=== PATIENT | male | born 1980 | race Caucasian/White ===

== ENCOUNTER 2021-03-05 19:18 | Emergency (ER) | payer SELFPAY ==
[2021-03-05 19:19] VITALS: BP 165/103; PULSE 110; RESP 18; TEMP 36.7; O2SAT 99; BMI 29.8
[2021-03-05 19:34] LABS: Basophils # 0.1 10^3/uL (0.0-0.1); Basophils % 0.5 %; Eosinophils % 0.3 %; Hematocrit 47.5 % (42.0-52.0); Hemoglobin 16.5 g/dL (11.7-16.6); Lymphocytes # 1.5 10^3/uL (0.8-4.8); Lymphocytes % 15.2 %; Mean Corpuscular HGB Conc 34.7 g/dL (30.0-36.0); Mean Corpuscular Hemoglobin 30.9 pg (28.0-34.0); Mean Platelet Volume 9.4 fL (7.4-10.4); Monocytes # 0.7 10^3/uL (0.2-0.9); Monocytes % 6.5 %; Neutrophils # 7.74 10^3/uL (1.8-7.7); Neutrophils % 77.3 %; Nucleated Red Blood Cells % 0 %; Platelet Count 265 10^3/cmm (130-400); Red Blood Count 5.34 10^6/uL (4.1-5.3); Red Cell Distribution Width 12.1 % (12.1-15.1)
[2021-03-05 19:52] LABS: Alanine Aminotransferase 33 U/L (0-41); Albumin Level 4.7 g/dL (3.5-5.2); Alkaline Phosphatase 80 IU/L (40-130); Anion Gap 16.9 (5-19); Aspartate Amino Transferase 24 U/L (0-40); Blood Urea Nitrogen 14 mg/dL (6-20); Calcium 8.8 mg/dL (8.5-10.5); Carbon Dioxide 27 mmol/L (22-29); Chloride 96 mmol/L (98-107); Globulin 3.2 g/dL (1.3-4.6); Glomerular Filtration Rate 150.8 mL/min (90-130); Glucose 277 mg/dL (65-115); Osmolality Calculated 292 mOsm/kg (285-295); Potassium 3.9 mmol/L (3.5-5.1); Sodium 136 mmol/L (136-145); Total Bilirubin 0.9 mg/dL (0.15-1.2); Total Protein 7.9 g/dL (6.6-8.7)
[2021-03-05 19:55] LABS: Acetaminophen < 5.0 ug/mL (10-30); Alcohol Level < 10 mg/dL (0-10); Creatinine Clr Calc Pharmacy 169.6364; Salicylate < 0.3 mg/dL (3-10)
[2021-03-05 20:01] LABS: Ketone (Acetest) Serum Positive (Negative)
[2021-03-05 20:35] LABS: Add Urine Microscopic? YES; Amphetamines Screen Urine Positive (Negative); Barbiturates Screen Urine Negative (Negative); Benzodiazepines Screen Urine Negative (Negative); Bilirubin Urine Neg (Negative); Blood Urine Neg (Negative); Cocaine Screen Urine Negative (Negative); Glucose Urine UA 4+ (Normal); Ketones Urine 3+ (Negative); Leukocyte Esterase Urine Negative (Negative); Nitrate Urine Negative (Negative); Opiate Screen Urine Negative (Negative); PCP Screen Urine Negative (Negative); Protein Urine 1+ (Negative); THC Screen Urine Negative (Negative); Urine Appearance Clear (CLEAR); Urine Color Yellow (Yellow); Urobilinogen Urine 1 mg/dL (Negative); pH Urine 5 (5-7)
[2021-03-05 20:36] LABS: Squamous Epithelial Cell Urine 0-4 /hpf (0-5)
[2021-03-05 20:37] LABS: Add Urine Culture? No; Mucus Urine 1+ /hpf
--- NOTE | 2021-03-05 20:48 | W.ED.PSYCH ---
HPI - Psych General: Chief Complaint: Psychiatric Symptoms Stated Complaint: seeing people Time Seen by Provider: 03/05/21 19:33 History of Present Illness: HPI Narrative: Patient was brought by EMS because he had called the police because he saw people running through his backyard and he was chasing them and then when EMS was there and the police he also talked about people being in a back room in his house they did not find anything of the sort he was hallucinating therefore they brought him into the emergency department. Patient here is alert oriented he is cooperative he admits to seeing these people and that he does realize that he was hallucinating he denies doing any drugs today says his last drug use was in September when he lost everything he is and estranged from his police. Patient has denied suicidal and homicidal ideation to myself and to other staff members nor any other family are here to write any affidavits he is has no complaints he is diabetic has not eaten today or taken his insulin he says he has hallucinated in the past with drug use he denies any diagnoses of bipolar or depression or Patient continually has denied suicidal or homicidal ideation I asked the sitter that was on the room same with the charge nurse he heard him deny it Physical Exam Narrative: EXAM NARRATIVE: general: a/o/3, no distress Head: atraumatic HEENT: normal eyes, normal conjunctiva, normal hearing, normal external nose, normal mouth, mucous membranes moist Neck: FROM, trachea midline Chest: normal expansion, no gross deformities Resp: normal speech, no retractions, no accessory muscle use, CTA bilaterally Cardio: regular rate and rhythm and no murmur, no peripheral edema, normal peripheral pulses GI: soft, flat non tender, no guarding normal BS : deferred Musculoskeletal: FROM, no pain or gross deformities Neuro: a/o appropriate for age, no gross motor or sensory deficits, CN II-XII grossly intact, normal coordination, normal speech Skin: no rashes Psych: cooperative, normal mood and effect Course Vital Signs: Vital signs: Vital Signs Temperature 98.0 F 03/05/21 19:19 Pulse Rate 110 H 03/05/21 19:19 Respiratory Rate 18 03/05/21 19:19 Blood Pressure 165/103 03/05/21 19:19 Pulse Oximetry 99 03/05/21 19:19 MDM - Psych MDM Narrative: Medical decision making narrative: Patient is cooperative and pleasant he is ANO x4 he does not appear to be tweaking although he is positive for amphetamines on his drug screen I do not have any affidavits on him he is denied suicidal or homicidal ideation. Patient lives at home alone I spoke with his mother who lives in [place] she is on her way to come see him she says she is communicated with him via texting on the phone over the past several days and he has been appropriate she has only had [id number] contact with him about 3-4 times since [address] Spoke to Dr. Perry from psychiatry and we will wait to try to talk to the mother. Spoke with the mother who is now here in the emergency department she has seen her son [id number] she feels he is appropriate I did have permission from him to share with her his drug screen he continues to deny amphetamine use says he has not used since September 14 however also denies [id number] medication such as Zantac that can cause false positives he does not appear to be tweaking the mother still feels safe taking him possibly patient did enough drugs to cause him to hallucinate but has improved. I spoke with Dr. Perry from psychiatry again after speaking with the mother patient again continuously has said he is not suicidal he denies any further hallucinations he just wants to get his injured dog to the vet the mother is willing to help him do that and she told me she will take responsibility for him and he can go stay at her house the next couple of days in [place] His blood sugar is up he has not taken his insulin today and has not eaten he does have some serum ketones however he is not acidotic on his labs Medical Records: Attestation: I reviewed the patient's medical records. Lab Data: Attestation: I reviewed the patient's lab results. Labs: Lab Results 03/05/21 03/05/21 03/05/21 Range/Units 19:28 19:28 19:28 WBC 10.0 (4.0-10.0) 10^3/ uL RBC 5.34 H (4.1-5.3) 10^6/u L Hgb 16.5 (11.7-16.6) g/dL Hct 47.5 (42.0-52.0) % MCV 89.0 (80-94) fL MCH 30.9 (28.0-34.0) pg MCHC 34.7 (30.0-36.0) g/dL RDW 12.1 (12.1-15.1) % Plt Count 265 (130-400) 10^3/c mm MPV 9.4 (7.4-10.4) fL Neut % (Auto) 77.3 % Lymph % (Auto) 15.2 % [place] % (Auto) 6.5 % Eos % (Auto) 0.3 % Baso % (Auto) 0.5 % Neut # (Auto) 7.74 H (1.8-7.7) 10^3/u L Lymph # (Auto) 1.5 (0.8-4.8) 10^3/u L [place] # (Auto) 0.7 (0.2-0.9) 10^3/u L Eos # (Auto) 0.0 (0.0-0.8) 10^3/u L Baso # (Auto) 0.1 (0.0-0.1) 10^3/u L Nucleated RBC % (a uto) 0 % Nucleated RBCs # 0.0 /100WBC Sodium 136 (136-145) mmol/L Potassium 3.9 (3.5-5.1) mmol/L Chloride 96 L (98-107) mmol/L Carbon Dioxide 27 (22-29) mmol/L Anion Gap 16.9 (5-19) BUN 14 (6-20) mg/dL Creatinine 0.6 L (0.7-1.2) mg/dL GFR Calculation 150.8 H (90-130) mL/min Glucose 277 H (65-115) mg/dL Calculated Osmolal ity 292 (285-295) mOsm/k g Calcium 8.8 (8.5-10.5) mg/dL Total Bilirubin 0.9 (0.15-1.2) mg/dL AST 24 (0-40) U/L ALT 33 (0-41) U/L Alkaline Phosphata se 80 (40-130) IU/L Total Protein 7.9 (6.6-8.7) g/dL Albumin 4.7 (3.5-5.2) g/dL Globulin 3.2 (1.3-4.6) g/dL Urine Color (Yellow) Urine Appearance (CLEAR) Urine pH (5-7) Ur Specific Gravit y (1.005-1.030) Urine Protein (Negative) Urine Glucose (UA) (Normal) Urine Ketones (Negative) Urine Blood (Negative) Urine Nitrate (Negative) Urine Bilirubin (Negative) Urine Urobilinogen (Negative) mg/dL Ur Leukocyte Tamia ase (Negative) Urine RBC (0-2) /hpf Urine WBC (0-5) /hpf Ur Squamous Epith Cells (0-5) /hpf Amorphous Sediment Urine Bacteria (NONE) /hpf Urine Mucus /hpf Salicylates < 0.3 L (3-10) mg/dL Urine Opiates Scre en (Negative) ng/mL Acetaminophen < 5.0 L (10-30) ug/mL Ur Barbiturates Sc reen (Negative) ng/mL Ur Phencyclidine S crn (Negative) ng/mL Ur Amphetamines Sc reen (Negative) ng/mL U Benzodiazepines Scrn (Negative) ng/mL Urine Cocaine Scre en (Negative) ng/mL U Marijuana (THC) Screen (Negative) ng/mL Ethyl Alcohol < 10 (0-10) mg/dL Serum Ketones Positive H (Negative) 03/05/21 03/05/21 Range/Units 20:14 20:14 WBC (4.0-10.0) 10^3/ uL RBC (4.1-5.3) 10^6/u L Hgb (11.7-16.6) g/dL Hct (42.0-52.0) % MCV (80-94) fL MCH (28.0-34.0) pg MCHC (30.0-36.0) g/dL RDW (12.1-15.1) % Plt Count (130-400) 10^3/c mm MPV (7.4-10.4) fL Neut % (Auto) % Lymph % (Auto) % [place] % (Auto) % Eos % (Auto) % Baso % (Auto) % Neut # (Auto) (1.8-7.7) 10^3/u L Lymph # (Auto) (0.8-4.8) 10^3/u L [place] # (Auto) (0.2-0.9) 10^3/u L Eos # (Auto) (0.0-0.8) 10^3/u L Baso # (Auto) (0.0-0.1) 10^3/u L Nucleated RBC % (a uto) % Nucleated RBCs # /100WBC Sodium (136-145) mmol/L Potassium (3.5-5.1) mmol/L Chloride (98-107) mmol/L Carbon Dioxide (22-29) mmol/L Anion Gap (5-19) BUN (6-20) mg/dL Creatinine (0.7-1.2) mg/dL GFR Calculation (90-130) mL/min Glucose (65-115) mg/dL Calculated Osmolal ity (285-295) mOsm/k g Calcium (8.5-10.5) mg/dL Total Bilirubin (0.15-1.2) mg/dL AST (0-40) U/L ALT (0-41) U/L Alkaline Phosphata se (40-130) IU/L Total Protein (6.6-8.7) g/dL Albumin (3.5-5.2) g/dL Globulin (1.3-4.6) g/dL Urine Color Yellow (Yellow) Urine Appearance Clear (CLEAR) Urine pH 5 (5-7) Ur Specific Gravit y 1.020 (1.005-1.030) Urine Protein 1+ H (Negative) Urine Glucose (UA) 4+ H (Normal) Urine Ketones 3+ H (Negative) Urine Blood Neg (Negative) Urine Nitrate Negative (Negative) Urine Bilirubin Neg (Negative) Urine Urobilinogen 1 H (Negative) mg/dL Ur Leukocyte Tamia ase Negative (Negative) Urine RBC None (0-2) /hpf Urine WBC None (0-5) /hpf Ur Squamous Epith Cells 0-4 H (0-5) /hpf Amorphous Sediment Not Reportable Urine Bacteria None (NONE) /hpf Urine Mucus 1+ /hpf Salicylates (3-10) mg/dL Urine Opiates Scre en Negative (Negative) ng/mL Acetaminophen (10-30) ug/mL Ur Barbiturates Sc reen Negative (Negative) ng/mL Ur Phencyclidine S crn Negative (Negative) ng/mL Ur Amphetamines Sc reen Positive H (Negative) ng/mL U Benzodiazepines Scrn Negative (Negative) ng/mL Urine Cocaine Scre en Negative (Negative) ng/mL U Marijuana (THC) Screen Negative (Negative) ng/mL Ethyl Alcohol (0-10) mg/dL Serum Ketones (Negative) Discharge Plan Discharge Patient Disposition: Home Clinical Impression: Hallucinations, Hyperglycemia Condition: Stable Prescriptions: No Action Lantus Solostar U-100 Insulin 100 unit/mL (3 mL) Insulin Pen 20 unit SUBCUT BID RF: 0 Discharge Orders: Discharge ED (Routine); Ordered 03/05/21 Ordered By: Tatiana Bernard Discharge Diet: Usual diet Discharge Activity: Resume usual activity Activity Restrictions/Additional Instructions: You need to take your insulin tonight and you need to eat No illicit drug use You are to stay with your mom lucinda let her keep an eye on you return if you have any further hallucinations or concerns return if you have any thoughts of suicide or homicidal ideations Thank you for choosing [facility] [place] for your healthcare needs today. Please realize this is an emergency room and that we are providing you with a medical screening exam and this may not be complete and all inclusive of all the testing and or work up that you may need to determine your ailment or severity of your illness. It is very important that you follow up as instructed or that you return to the Emergency Department should you have concerns or if your condition changes or worsens in any way. Coding Level of Care Code ED Manager Of Development for Sarai Frias
[2021-03-05 21:15] VITALS: PULSE 99; RESP 20; O2SAT 95
== END 2021-03-05 21:17 | disposition home or self-care (01) ==
PROVIDERS: Emergency Medicine; Emergency Provider Emergency Medicine
DX: R44.1 Visual hallucinations (principal); E11.65 Type 2 diabetes mellitus with hyperglycemia; Z79.4 Long term (current) use of insulin
CPT/HCPCS: 80053; 80306; 80307; 81001; 82009; 85025; 99284

== ENCOUNTER 2021-08-10 14:24 | Emergency (ER) | payer SELFPAY ==
[2021-08-10 14:25] VITALS: BP 156/97; PULSE 119; RESP 17; O2SAT 100; BMI 29.0
[2021-08-10 14:55] VITALS: BP 156/97; PULSE 110; RESP 17; O2SAT 98
--- NOTE | 2021-08-10 14:55 | ED_ITS ---
HPI - General Adult General: Chief complaint: Dizziness Stated complaint: HYPERGLYCEMIA; DIZZINESS Time Seen by Provider: 08/10/21 14:25 History of Present Illness: HPI narrative: 41-year-old male with history of type 2 diabetes on insulin presenting to the em ergency room with poorly controlled glucose. Patient says that for the last few months, he has had glucose running in the range of 700 900. Patient was told to go to the emergency room at the request of his family. Patient denies any nausea/vomiting, history of DKA, abdominal complaints chest pain, shortness of breath, palpitation, or other complaints. Patient says that he has been able to tolerate p.o. without any difficulty. Onset: chronic Duration:ongoing Location:home Severity:moderate Review of Systems Narrative: Constitutional: No fever, no chills. HEENT: No vision changes CV: No chest pain, no palpitations PULM: no cough, no dyspnea. GI: No abdominal pain, no N/V/D. : No dysuria MSKEL: No muscle pain SKIN: No new rashes, no lesions. NEURO: No headache, no focal weakness. HEME: No visible bruises PSYCH: Normal mood Physical Exam Narrative: EXAM NARRATIVE: Head: Atraumatic Eyes: PERRL, conjunctiva without injection ENT: Dry membrane moist NECK: Supple, ROM intact LUNGS: LCTAB, no crackles/rhonchi CV: Sinus tacycardia ABDOMEN: Soft, nontender in all quadrants EXTREMITY: Normal ROM SKIN: No rash or erythema NEURO: Awake and alert, no focal motor deficits PSYCH: Normal mood and affect Course Vital Signs: Vital signs: Vital Signs Pulse Rate 92 08/10/21 17:07 Respiratory Rate 17 08/10/21 17:07 Blood Pressure 133/86 08/10/21 17:07 Pulse Oximetry 99 08/10/21 17:07 MDM - General Adult MDM Narrative: Medical decision making narrative: 41-year-old male with history of type 2 diabetes presenting to the emergency room for concerns of hyperglycemia. On exam, patient noted to be tachycardic and dry. Rest of exam within normal limit. Laboratory evaluation, patient is noted to have white count of 17.3 at this present time, he is afebrile. He is hemoconcentrated 19.2. Creatinine within normal limit. Sodium 127. Glucose of 456. Patient does not exhibit any signs of anion gap metabolic acidosis. No suspicion the patient is in DKA at the present time. Patient received 2 L of fluid, 5 units subcutaneous lispro with improvement of glucose to less than 300. At the present time, I discussed with patient that it is imperative for him to follow-up with our care patient provided further evaluation. Unclear what the source of leukocytosis at this time but at the present time do not suspect infection given no focal symptoms. I have given patient follow up with our lead case manager to be seen by our PCP for evaluation of uncontrolled diabetes. Patient aware of a call from our lead case manager to schedule for appointment(s) and verbalizes understanding of the importance of following up. Patient does not tolerate metformin in the past and does not want it today. Disposition: Discharge. Patient counseled regarding diagnostic impression, treatment plan. Patient given ED strict return precautions to return for continuation, worsening, or development of new symptoms. Instructed to f/u w/ PCP regarding symptoms today. Patient verbalized understanding. Lab Data: Labs: Lab Results 08/10/21 08/10/21 08/10/21 13:20 14:41 14:53 WBC 17.3 10^3/uL H 10 ^3/uL (4.0-10.0) RBC 5.97 10^6/uL H 10 ^6/uL (4.1-5.3) Hgb 19.2 g/dL H g/dL (11.7-16.6) Hct 53.8 % H % (42.0-52.0) MCV 90.1 fl fl (80-94) MCH 32.2 pg pg (28.0-34.0) MCHC 35.7 g/dL g/dL (30.0-36.0) RDW 12.1 % % (12.1-15.1) Plt Count 256 10^3/cmm 10^3 /cmm (130-400) MPV 9.6 fL fL (7.4-10.4) Neut % (Auto) 84.0 % % Lymph % (Auto) 9.3 % % [place] % (Auto) 5.4 % % Eos % (Auto) 0.5 % % Baso % (Auto) 0.3 % % Neut # (Auto) 14.50 10^3/uL H 1 0^3/uL (1.8-7.7) Lymph # (Auto) 1.6 10^3/uL 10^3/ uL (0.8-4.8) [place] # (Auto) 0.9 10^3/uL 10^3/ uL (0.2-0.9) Eos # (Auto) 0.1 10^3/uL 10^3/ uL (0.0-0.8) Baso # (Auto) 0.1 10^3/uL 10^3/ uL (0.0-0.1) Nucleated RBC % (a uto) 0 % % Nucleated RBCs # 0.0 /100WBC /100W BC Specimen Type Venous Karthik Test Pos VBG pH 7.42 (7.32-7.42) VBG pCO2 39.3 mmHg L mmHg (41-51) VBG pO2 79.2 mmHg H mmHg (25-40) VBG HCO3 25.3 mmol/L mmol/ L (24-28) VBG Base Excess 0.8 mmol/L mmol/L (-3.0-3.0) VBG Hematocrit 56.4 % H % (42-52) O2 Delivery Device Ra Practice Architect ID [place] Sodium Potassium Chloride Carbon Dioxide Anion Gap BUN Creatinine GFR Calculation Glucose POC Glucose Calculated Osmolal ity Calcium Total Bilirubin AST ALT Alkaline Phosphata se Total Protein Albumin Globulin Lipase Urine Color Yellow (Yellow) Urine Appearance Clear (CLEAR) Urine pH 6.5 (5-7) Ur Specific Gravit y 1.005 (1.005-1.030) Urine Protein Neg (Negative) Urine Glucose (UA) 4+ H (Normal) Urine Ketones Negative (Negative) Urine Blood Neg (Negative) Urine Nitrate Negative (Negative) Urine Bilirubin Neg (Negative) Urine Urobilinogen Norm mg/dL mg/dL (Negative) Ur Leukocyte Tamia ase Negative (Negative) Serum Ketones 08/10/21 08/10/21 08/10/21 14:53 14:53 17:12 WBC RBC Hgb Hct MCV MCH MCHC RDW Plt Count MPV Neut % (Auto) Lymph % (Auto) [place] % (Auto) Eos % (Auto) Baso % (Auto) Neut # (Auto) Lymph # (Auto) [place] # (Auto) Eos # (Auto) Baso # (Auto) Nucleated RBC % (a uto) Nucleated RBCs # Specimen Type Karthik Test VBG pH VBG pCO2 VBG pO2 VBG HCO3 VBG Base Excess VBG Hematocrit O2 Delivery Device Practice Architect ID Sodium 127 mmol/L L mmol /L (136-145) Potassium 4.4 mmol/L mmol/L (3.5-5.1) Chloride 89 mmol/L L mmol/ L (98-107) Carbon Dioxide 23 mmol/L mmol/L (22-29) Anion Gap 19.4 H (5-19) BUN 7 mg/dL mg/dL (6-20) Creatinine 0.5 mg/dL L mg/dL (0.7-1.2) GFR Calculation 185.1 mL/min H mL /min (90-130) Glucose 456 mg/dL H mg/dL (65-115) POC Glucose 264 mg/dL H mg/dL (70-110) Calculated Osmolal ity 282 mOsm/kg L mOs m/kg (285-295) Calcium 9.2 mg/dL mg/dL (8.5-10.5) Total Bilirubin 0.4 mg/dL mg/dL (0.15-1.2) AST 12 U/L U/L (0-40) ALT 19 U/L U/L (0-41) Alkaline Phosphata se 96 IU/L IU/L (40-130) Total Protein 7.8 g/dL g/dL (6.6-8.7) Albumin 4.4 g/dL g/dL (3.5-5.2) Globulin 3.4 g/dL g/dL (1.3-4.6) Lipase 26 U/L U/L (13-60) Urine Color Urine Appearance Urine pH Ur Specific Gravit y Urine Protein Urine Glucose (UA) Urine Ketones Urine Blood Urine Nitrate Urine Bilirubin Urine Urobilinogen Ur Leukocyte Tamia ase Serum Ketones Negative (Negative) 08/10/21 17:14 WBC RBC Hgb Hct MCV MCH MCHC RDW Plt Count MPV Neut % (Auto) Lymph % (Auto) [place] % (Auto) Eos % (Auto) Baso % (Auto) Neut # (Auto) Lymph # (Auto) [place] # (Auto) Eos # (Auto) Baso # (Auto) Nucleated RBC % (a uto) Nucleated RBCs # Specimen Type Karthik Test VBG pH VBG pCO2 VBG pO2 VBG HCO3 VBG Base Excess VBG Hematocrit O2 Delivery Device Practice Architect ID Sodium Potassium Chloride Carbon Dioxide Anion Gap BUN Creatinine GFR Calculation Glucose 303 mg/dL H mg/dL (65-115) POC Glucose Calculated Osmolal ity Calcium Total Bilirubin AST ALT Alkaline Phosphata se Total Protein Albumin Globulin Lipase Urine Color Urine Appearance Urine pH Ur Specific Gravit y Urine Protein Urine Glucose (UA) Urine Ketones Urine Blood Urine Nitrate Urine Bilirubin Urine Urobilinogen Ur Leukocyte Tamia ase Serum Ketones Discharge Plan Discharge Patient Disposition: Home Clinical Impression: Hyperglycemia, Diabetes Condition: Stable Prescriptions: No Action Lantus Solostar U-100 Insulin 100 unit/mL (3 mL) Insulin Pen 20 unit SUBCUT BID RF: 0 Discharge Orders: Discharge ED (Routine); Ordered 08/10/21 Ordered By: Noreen Mahmood Discharge Diet: Advance as tolerated Discharge Activity: Resume usual activity Patient Instructions: Diabetes and Nutrition (ED) Activity Restrictions/Additional Instructions: Our lead case manager will have you follow-up with a PCP in the next few days. You would be expected to have a phone call with our lead case manager who will put you on the schedule. Come back to the emergency room you have any fever or chills, chest pain, shortness of breath, nausea vomiting, dehydration, headache, or any new extreme complaints Coding Level of Care Code ED Gage Designer for Sarai Frias
[2021-08-10 15:03] LABS: Add Urine Microscopic? NO; Charge for UA Resulting for Rev
[2021-08-10 15:08] LABS: Basophils # 0.1 10^3/uL (0.0-0.1); Basophils % 0.3 %; Eosinophils # 0.1 10^3/uL (0.0-0.8); Eosinophils % 0.5 %; Hematocrit 53.8 % (42.0-52.0); Hemoglobin 19.2 g/dL (11.7-16.6); Lymphocytes # 1.6 10^3/uL (0.8-4.8); Lymphocytes % 9.3 %; Mean Corpuscular HGB Conc 35.7 g/dL (30.0-36.0); Mean Corpuscular Hemoglobin 32.2 pg (28.0-34.0); Mean Corpuscular Volume 90.1 fl (80-94); Mean Platelet Volume 9.6 fL (7.4-10.4); Monocytes # 0.9 10^3/uL (0.2-0.9); Monocytes % 5.4 %; Nucleated Red Blood Cells % 0 %; Platelet Count 256 10^3/cmm (130-400); Red Blood Count 5.97 10^6/uL (4.1-5.3); Red Cell Distribution Width 12.1 % (12.1-15.1); White Blood Count 17.3 10^3/uL (4.0-10.0)
[2021-08-10 15:10] LABS: Bilirubin Urine Neg (Negative); Blood Urine Neg (Negative); Glucose Urine UA 4+ (Normal); Ketones Urine Negative (Negative); Leukocyte Esterase Urine Negative (Negative); Nitrate Urine Negative (Negative); Protein Urine Neg (Negative); Specific Gravity, Urine 1.005 (1.005-1.030); Urine Appearance Clear (CLEAR); Urine Color Yellow (Yellow); Urobilinogen Urine Norm (Negative); pH Urine 6.5 (5-7)
[2021-08-10 15:17] LABS: Ketone (Acetest) Serum Negative (Negative)
[2021-08-10 15:30] LABS: Base Excess VBG 0.8 mmol/L (-3.0-3.0); Blood Gas Allen Test Pos; Blood Gas Sample Type Venous; HCO3 VBG 25.3 mmol/L (24-28); PCO2 VBG 39.3 mmHg (41-51); PO2 VBG 79.2 mmHg (25-40); Venous Blood Gas Hematocrit 56.4 % (42-52); pH VBG 7.42 (7.32-7.42)
[2021-08-10 15:30] LABS: Alanine Aminotransferase 19 U/L (0-41); Albumin Level 4.4 g/dL (3.5-5.2); Alkaline Phosphatase 96 IU/L (40-130); Anion Gap 19.4 (5-19); Aspartate Amino Transferase 12 U/L (0-40); Blood Urea Nitrogen 7 mg/dL (6-20); Calcium 9.2 mg/dL (8.5-10.5); Carbon Dioxide 23 mmol/L (22-29); Chloride 89 mmol/L (98-107); Globulin 3.4 g/dL (1.3-4.6); Glomerular Filtration Rate 185.1 mL/min (90-130); Glucose 456 mg/dL (65-115); Lipase 26 U/L (13-60); Osmolality Calculated 282 mOsm/kg (285-295); Potassium 4.4 mmol/L (3.5-5.1); Sodium 127 mmol/L (136-145); Total Bilirubin 0.4 mg/dL (0.15-1.2); Total Protein 7.8 g/dL (6.6-8.7)
[2021-08-10 15:31] LABS: Blood Gas Operator Identificat MONRO
[2021-08-10] MEDS: insulin lispro 100 unit/1 mL SUBCUT (16:27)
[2021-08-10] MEDS: sodium chloride 0.9% 1,000 ML 999 ML IV ×2 (16:27)
[2021-08-10 17:07] VITALS: BP 133/86; PULSE 92; RESP 17; O2SAT 99
[2021-08-10 17:14] LABS: Glucose Point of Care 264 mg/dL (70-110)
[2021-08-10 17:35] LABS: Glucose 303 mg/dL (65-115)
[2021-08-10 17:56] LABS: Oxygen Device RA
[2021-08-10 18:26] VITALS: BP 126/83; PULSE 95; RESP 16; O2SAT 98
[2021-08-11 17:50] LABS: Blood Gas Sample Site VENOUS
--- NOTE | 2021-08-14 11:25 | DCPLANNER ---
chronic manager had message to speak with patient about getting established with a primary care physician. chronic manager called phone number [phone], unable to speak with patient at this time, a voicemail was left for patient to return caser up phone call.
== END 2021-08-10 18:28 | disposition home or self-care (01) ==
PROVIDERS: Emergency Provider Emergency Medicine
DX: E11.65 Type 2 diabetes mellitus with hyperglycemia (principal); Z79.4 Long term (current) use of insulin
CPT/HCPCS: 36415; 36416; 80053; 81003; 82009; 82803; 82947; 82962; 83690; 85025; 96360; 96361; 96372; 99284; J1815; J7030